=== PATIENT | male | born 1960 | race Two or more races ===

== ENCOUNTER 2022-05-16 10:29 | Emergency (ER) | payer SELFPAY ==
[~2022-05-16] VITALS: Ht 170.2 cm; Wt 95.0 kg
[2022-05-16 10:40] VITALS: BP 189/105
[2022-05-16 11:03] LABS: BASOPHILS # (AUTO) 0.1 X10'3 (0-0.2); BASOPHILS % (AUTO) 0.8 % (0-1); EOSINOPHILS # (AUTO) 0.1 X10'3 (0-0.9); EOSINOPHILS % (AUTO) 0.9 % (0-6); HEMATOCRIT 45.2 % (42.0-52.0); LYMPHOCYTES # (AUTO) 1.4 X10'3 (1.1-4.8); LYMPHOCYTES % (AUTO) 20.7 % (21-51); MEAN CORPUSCULAR HEMOGLOBIN 36.1 PG (27.0-31.0); MEAN CORPUSCULAR HGB CONC 35.4 g/dL (33.0-36.5); MEAN CORPUSCULAR VOLUME 101.9 FL (78-98); MEAN PLATELET VOLUME 7.4 FL (7.4-10.4); MONOCYTES # (AUTO) 0.8 X10'3 (0-0.9); MONOCYTES % (AUTO) 11.5 % (2-12); NEUTROPHILS # (AUTO) 4.4 X10'3 (1.8-7.7); NEUTROPHILS % (AUTO) 66.1 % (42-75); PLATELET COUNT 281 X10'3 (140-440); RED BLOOD COUNT 4.44 X10'6 (4.70-6.10); RED CELL DISTRIBUTION WIDTH 12.7 % (11.5-14.5); WHITE BLOOD COUNT 6.6 X10'3 (4.5-11.0)
[2022-05-16 11:18] LABS: ALANINE AMINOTRANSFERASE 56 U/L (12-78); ALBUMIN 4.1 G/DL (3.4-5.0); ALBUMIN/GLOBULIN RATIO 1.1 (1.1-1.5); ALKALINE PHOSPHATASE 98 IU/L (46-116); ANION GAP 9 (8-16); ASPARTATE AMINO TRANSFERASE 33 U/L (10-37); BILIRUBIN,TOTAL 0.8 MG/DL (0.1-1.0); BLOOD UREA NITROGEN 10 MG/DL (7-18); CALCIUM 9.5 MG/DL (8.5-10.1); CHLORIDE 102 MMOL/L (99-107); CREATININE 0.91 MG/DL (0.60-1.10); GLUCOSE 135 MG/DL (70-104); POTASSIUM 3.7 MMOL/L (3.5-5.1); SODIUM 138 MMOL/L (135-145); TOTAL PROTEIN 7.9 G/DL (6.4-8.2); eGFR 84 ML/MIN
== END 2022-05-16 15:33 | disposition left against medical advice (07) ==
LOC: ER 10:29
DX: R07.9 Chest pain, unspecified (principal); Z53.21 Procedure and treatment not carried out due to patient leaving prior to being seen by health care provider
CPT/HCPCS: 36415; 71045; 80053; 83880; 84484; 85025; 93005

== ENCOUNTER 2025-08-16 11:05 | Outpatient (CLI) | payer MEDICARE, OTHER ==
--- NOTE | 2025-08-16 16:55 | RADIOLOGY REPORT ---
EXAM: MR MRI UPPER EXTREMITY RIGHT INDICATION: PAIN IN RIGHT SHOULDER TECHNIQUE: Multiplanar, multisequence MR images of the right shoulder were obtained in the absence of gadolinium contrast material. COMPARISON: None FINDINGS: [CORACOACROMIAL ARCH]: Severe degenerative change of the right acromioclavicular joint. Mild capsular hypertrophy of the acromioclavicular joint. Intact coracoclavicular ligaments. Intact coracoacromial ligaments. No subacromial/subdeltoid bursal fluid. [ROTATOR CUFF]: [id number] tendinosis of the superior rotator cuff with distal partial articular sided tearing of the anterior fibers of the infraspinatus to posterior fibers of the supraspinatus. [BICEPS TENDON]: Disproportionate amount of fluid along the long head of the biceps tendon sheath with multiple adjacent free-floating bodies along the tendon sheath measuring up to 8 mm. Intermediate to high signal intensity which may reflect underlying tearing of the intra-articular segment of the long head of the biceps tendon versus tendinosis. [LABRUM]: Intact. [CARTILAGE]: Severe glenohumeral joint space loss with a [id number] contact. Severe apposing cartilage loss of the glenohumeral joint. [GLENOHUMERAL JOINT]: Multiple areas of osteitis and subcortical cystic change of the humeral head. [BONES]:Multiple areas of osteitis and subcortical cystic change of the humeral head. No acute fracture, osseous contusion, or aggressive focal osseous lesion. [MUSCLES]: Normal muscle bulk of the rotator cuff muscles. [NEUROVASCULAR/LYMPH NODES]: Normal. [OTHER]: None. IMPRESSION: 1. Severe degenerative change of the right glenohumeral joint with [id number] contact and severe apposing cartilage loss. 2. Disproportionate amount of fluid along the long head of the biceps tendon sheath with multiple adjacent free-floating bodies along the tendon sheath measuring up to 8 mm. 3. Intermediate to high signal intensity which may reflect underlying tearing of the intra-articular segment of the long head of the biceps tendon versus tendinosis. 4. [id number]-[id number] tendinosis of the superior rotator cuff with distal partial articular sided tearing of the anterior fibers of the infraspinatus to posterior fibers of the supraspinatus.
== END 2025-08-16 23:59 | disposition home or self-care (01) ==
LOC: MRI02 11:05
PROVIDERS: ATTEND Physician Assistant Surgical
DX: M19.011 Primary osteoarthritis, right shoulder (principal); M25.511 Pain in right shoulder; M75.101 Unspecified rotator cuff tear or rupture of right shoulder, not specified as traumatic; M86.8X8 Other osteomyelitis, other site
CPT/HCPCS: 73221